=== PATIENT | female | born 1970 | race Caucasian/White ===

== ENCOUNTER 2018-04-09 19:21 | Emergency (ER) | payer BC, OTHER ==
[2018-04-09] MEDS: KETOROLAC 30 MG INJ IM (19:54)
[2018-04-09 20:34] LABS: ADD UMIC YES; UR ASCORBIC ACID NEGATIVE (NEGATIVE); UR BILIRUBIN (Dip) NEGATIVE (NEGATIVE); UR BLOOD (Dip) NEGATIVE (NEGATIVE); UR CALCIUM OXALATE CRYSTAL MANY /HPF (NONE SEEN); UR CLARITY SLIGHTLY CLOUDY (CLEAR); UR COLOR YELLOW (YELLOW); UR GLUCOSE (Dip) NEGATIVE (NEGATIVE); UR KETONES (Dip) NEGATIVE (NEGATIVE); UR LEUKOCYTE ESTERASE (Dip) 2+ Leu/ul (NEGATIVE); UR MUCUS FEW /HPF (NONE SEEN); UR NITRITE (Dip) NEGATIVE (NEGATIVE); UR NONSQUAMOUS EPITHELIAL CELL 1 /HPF (NONE SEEN); UR RBC 7 /HPF (0-5); UR SPECIFIC GRAVITY (Dip) 1.024 (1.003-1.030); UR TOTAL PROTEIN (Dip) 1+ mg/dl (NEGATIVE); UR UROBILINOGEN (Dip) NEGATIVE (NEGATIVE); UR WBC 16 /HPF (0-5)
[2018-04-09] MEDS: CEFTRIAXONE 1 GM INJ IM (21:11)
[2018-04-09] MEDS: LIDOCAINE 1% (MDV) 10 ML INJ INFIL (21:12)
== END 2018-04-09 21:46 | disposition home or self-care (01) ==
LOC: FTE 19:21
DX: N39.0 Urinary tract infection, site not specified (principal); F17.210 Nicotine dependence, cigarettes, uncomplicated
CPT/HCPCS: 81001; 81025; 96372; 99284-25

== ENCOUNTER 2019-02-09 11:44 | Emergency (ER) | payer SELFPAY, BC ==
[2019-02-09] MEDS: KETOROLAC 30 MG INJ IM (12:56)
[2019-02-09] MEDS: ONDANSETRON (ODT) 4 MG TAB ODT (12:56)
== END 2019-02-09 13:27 | disposition home or self-care (01) ==
LOC: FTE 11:44
DX: R51 Headache (principal); R11.0 Nausea; Z85.41 Personal history of malignant neoplasm of cervix uteri; Z87.891 Personal history of nicotine dependence
CPT/HCPCS: 96372; 99284-25